=== PATIENT | female | born 1970 | race Two or more races ===

== ENCOUNTER → 2024-04-13 | Outpatient (CLI) | payer BC ==
--- NOTE | 2024-04-13 19:38 | US ---
EXAMINATION TYPE: US venous doppler duplex LE DATE OF EXAM: 04/13/2024 3:25 PM COMPARISON: NONE CLINICAL INDICATION: Female, 53 years old with history of I80.9 PHLEBITIS AND THROMBOPHLEBITIS; No hx of DVT. Patient does not take blood thinners. Pain x 3 weeks. SIDE PERFORMED: Left TECHNIQUE: The lower extremity deep venous system is examined utilizing real time linear array sonog kadeem with graded compression, doppler sonography and color-flow sonography. VESSELS IMAGED: Common Femoral Vein Deep Femoral Vein Greater Saphenous Vein * Femoral Vein Popliteal Vein Small Saphenous Vein * Proximal Calf Veins (* superficial vessels) *Complex fluid area seen within the anterior left manzano at area of redness: 3.9 x 2.2 x 0.9 cm. The deep venous system of the left lower extremity from the common femoral vein to the proximal calf veins is patent and compressible with augmentable flow with normal waveforms. IMPRESSION: 1. No evidence of left lower extremity DVT from the common femoral vein to the proximal calf veins. 2. Complex fluid collection in the left anterior manzano soft tissues as described above.
== END | disposition home or self-care (01) ==
LOC: RADUSWWP 15:05
PROVIDERS: ATTEND Orthopaedic Surgery
DX: I80.8 Phlebitis and thrombophlebitis of other sites (principal)